=== PATIENT | male | born 1975 | race Caucasian/White ===

== ENCOUNTER 2021-03-25 10:51 | Inpatient (IN) ==
[2021-03-25] MEDS ORDERED: cefTRIAXone 1,000 MG in SODIUM CHLORIDE 0.9% 100 ML IV STA (12:02)
[2021-03-25] MEDS ORDERED: AZITHROMYCIN 40 MG/ML 15 ML/BOTTLE PO STA (12:02)
[2021-03-25] MEDS ORDERED: APIXABAN 5 MG TABLET PO SCH (12:30)
[2021-03-25] MEDS ORDERED: LACTULOSE 20 GM/30 ML UDCUP PO PRN (13:45)
[2021-03-25] MEDS ORDERED: DEXTROSE 50% 25 GM/50 ML VIAL IV PRN (13:45)
[2021-03-25] MEDS ORDERED: GLUCAGON 1 MG VIAL IM PRN (13:45)
[2021-03-25] MEDS ORDERED: ALBUTEROL 2.5 MG/3 ML NEB RESP TX PRN (13:45)
[2021-03-25] MEDS ORDERED: MORPHINE 2 MG/1 ML SYRINGE IV PRN (13:45)
[2021-03-25] MEDS ORDERED: hydrALAZINE 20 MG/1 ML VIAL IV PRN (13:45)
[2021-03-25] MEDS ORDERED: ACETAMINOPHEN 325 MG TABLET PO PRN (13:45)
[2021-03-25] MEDS ORDERED: HEPARIN 5,000 UNIT/1 ML VIAL IV ONE (13:52)
[2021-03-25] MEDS: ONDANSETRON 4 MG/2 ML VIAL IV PRN ×2 (14:23→20:04)
[2021-03-25] MEDS ORDERED: NICOTINE 21 MG/24 HR PATCH TRANSDERM PRN (14:32)
[2021-03-25 15:03] LABS: Risk Ratio 5.19; Thyroid Stimulating Hormone 0.218 uIU/ml (0.358-3.74); VLDL Cholesterol 21.2 MG/DL
[2021-03-25] MEDS: amLODIPine 10 MG TABLET PO SCH (16:57)
[2021-03-25] MEDS: oxyCODONE/ACETAMINOPHEN 5-325 MG TABLET PO PRN (16:57)
[2021-03-25] MEDS: DEXTROSE 5% NACL 0.45% 1,000 ML IV SCH ×2 (16:58→22:50)
[2021-03-25] MEDS: HYDROmorphone 2 MG/1 ML VIAL IV PRN (20:04)
[2021-03-26 05:57] LABS: Basophils % 0.4 % (0.0-0.8); Hematocrit 28.8 VOL% (42.0-52.0); Hemoglobin 9.5 GM/DL (14.0-18.0); Lymphocytes # 0.3 10*3/uL (1.4-4.0); Mean Platelet Volume 9.1 FL (9.6-12.0); Monocytes % 20.3 % (1.7-12.7); Neutrophils % 66.3 % (38.7-73.9); Platelet Count 262 T/CUMM (130-400); Red Blood Count 2.77 MC/CUMM (3.8-5.5); Red Cell Distribution Width 13.7 % (9.3-17.3); White Blood Count 2.3 T/CUMM (4-12)
[2021-03-26 06:16] LABS: Calcium 9.1 MG/DL (8.5-10.1); Osmolality,Calculated 273.8 MOS/KG (273-304); Potassium 4.2 MMOL/L (3.5-5.1)
[2021-03-26 06:24] LABS: Free T4 (Free Thyroxine) 1.11 NG/DL (0.76-1.46)
[2021-03-26 06:29] LABS: Band Neutrophils 1 % (0-10); Eosinophils 2 % (0-10); Hypochromasia 1+; Lymphocytes 13 % (20-55); Microcytosis 1+; Platelet Estimate Adequate; Segmented Neutrophils 70 % (50-85); Total Cells Counted 100
[2021-03-26] MEDS ORDERED: HEPARIN 5,000 UNIT/1 ML VIAL IV ONE (08:42)
[2021-03-26] MEDS ORDERED: ALPRAZolam 0.25 MG TABLET PO PRN (08:46)
[2021-03-26] MEDS ORDERED: guaiFENesin 200 MG/10 ML UDCUP PO PRN (08:46)
[2021-03-26] MEDS ORDERED: ALUMINUM/MAGNES/SIMETH MAX STR 30 ML UDCUP PO PRN (08:46)
[2021-03-26] MEDS ORDERED: ACETAMINOPHEN 325 MG TABLET PO PRN (08:46)
[2021-03-26] MEDS ORDERED: PROMETHAZINE INJ 25 MG in SODIUM CHLORIDE 0.9% 50 ML IV PRN (08:46)
[2021-03-26] MEDS ORDERED: MYLANTA/LIDO VISC 2:1 300 ML BOTTLE SWISH/SPIT PRN (08:46)
[2021-03-26] MEDS ORDERED: ONDANSETRON 4 MG/2 ML VIAL IV PRN (08:46)
[2021-03-26] MEDS ORDERED: LOPERAMIDE 2 MG CAPSULE PO PRN ×2 (08:46)
[2021-03-26] MEDS ORDERED: chlorproMAZINE INJ 50 MG in SODIUM CHLORIDE 0.9% 100 ML IV PRN (08:46)
[2021-03-26] MEDS ORDERED: MYLANTA/LIDO VISC 2:1 300 ML BOTTLE SWISH/SWAL PRN (08:46)
[2021-03-26] MEDS ORDERED: TEMAZEPAM 7.5 MG CAPSULE PO PRN (08:46)
[2021-03-26] MEDS ORDERED: chlorproMAZINE INJ 25 MG in SODIUM CHLORIDE 0.9% 100 ML IV PRN (08:46)
[2021-03-26] MEDS ORDERED: MAGNESIUM HYDROXIDE SUSP 30 ML UDCUP PO PRN (08:46)
[2021-03-26] MEDS ORDERED: traMADol 50 MG TABLET PO PRN (08:46)
[2021-03-26] MEDS ORDERED: diphenhydrAMINE CAP 25 MG CAPSULE PO PRN (08:46)
[2021-03-26] MEDS: DEXTROSE 5% NACL 0.45% 1,000 ML IV SCH ×3 (08:52→21:09)
[2021-03-26] MEDS: PANTOPRAZOLE 40 MG VIAL IV SCH (08:56)
[2021-03-26] MEDS: amLODIPine 10 MG TABLET PO SCH (08:56)
[2021-03-26] MEDS ORDERED: FILGRASTIM-SNDZ 480 MCG/0.8 ML SYRINGE SUBCUT SCH (09:00)
[2021-03-26] MEDS: LACTULOSE 20 GM/30 ML UDCUP PO PRN (09:09)
[2021-03-26] MEDS: HYDROmorphone 2 MG/1 ML VIAL IV PRN ×3 (09:09→18:19)
[2021-03-26] MEDS: HEPARIN DRIP 25,000 UNITS/500 ML PREMIX IV SCH (11:17)
[2021-03-26] MEDS: oxyCODONE/ACETAMINOPHEN 5-325 MG TABLET PO PRN (15:42)
[2021-03-26] MEDS: guaiFENesin/DM ER 600-30 MG TABLET PO SCH (21:10)
[2021-03-27] MEDS: HYDROmorphone 2 MG/1 ML VIAL IV PRN ×6 (00:40→23:29)
[2021-03-27 02:05] LABS: Basophils % 0.3 % (0.0-0.8); Eosinophils % 0.2 % (0.00-10.9); Hematocrit 28.1 VOL% (42.0-52.0); Hemoglobin 9.1 GM/DL (14.0-18.0); Immature Granulocytes % 2.2 %; Immature Granulocytes Absolute 0.14 #; Lymphocytes # 0.3 10*3/uL (1.4-4.0); Lymphocytes % 5.3 % (21.2-54.2); Mean Corpuscular HGB Conc 32.4 GM/DL (32-36); Mean Corpuscular Volume 103.3 FL (87-102); Mean Platelet Volume 9.3 FL (9.6-12.0); Monocytes % 10.2 % (1.7-12.7); Neutrophils % 81.8 % (38.7-73.9); Platelet Count 257 T/CUMM (130-400); Red Blood Count 2.72 MC/CUMM (3.8-5.5); Red Cell Distribution Width 14.2 % (9.3-17.3); White Blood Count 6.4 T/CUMM (4-12)
[2021-03-27 02:39] LABS: Band Neutrophils 1 % (0-10); Hypochromasia Slight; Lymphocytes 8 % (20-55); Platelet Estimate Normal; Segmented Neutrophils 79 % (50-85)
[2021-03-27 02:40] LABS: Total Cells Counted 100
[2021-03-27 03:42] LABS: Osmolality,Calculated 273.7 MOS/KG (273-304); Potassium 4.1 MMOL/L (3.5-5.1)
[2021-03-27] MEDS: HEPARIN DRIP 25,000 UNITS/500 ML PREMIX IV SCH ×2 (04:02→19:21)
[2021-03-27] MEDS: DEXTROSE 5% NACL 0.45% 1,000 ML IV SCH ×3 (05:40→23:30)
[2021-03-27] MEDS: guaiFENesin/DM ER 600-30 MG TABLET PO SCH ×2 (10:13→20:26)
[2021-03-27] MEDS: amLODIPine 10 MG TABLET PO SCH (10:14)
[2021-03-27] MEDS: cefTRIAXone 1,000 MG in SODIUM CHLORIDE 0.9% 100 ML IV SCH (10:14)
[2021-03-27] MEDS: PANTOPRAZOLE 40 MG VIAL IV SCH (10:14)
[2021-03-28 05:22] LABS: Basophils % 0.3 % (0.0-0.8); Eosinophils % 0.3 % (0.00-10.9); Hematocrit 25.9 VOL% (42.0-52.0); Hemoglobin 8.6 GM/DL (14.0-18.0); Immature Granulocytes % 1.5 %; Immature Granulocytes Absolute 0.12 #; Lymphocytes # 0.7 10*3/uL (1.4-4.0); Lymphocytes % 8.8 % (21.2-54.2); Mean Corpuscular HGB Conc 33.2 GM/DL (32-36); Mean Platelet Volume 9.2 FL (9.6-12.0); Monocytes % 8.9 % (1.7-12.7); Neutrophils % 80.2 % (38.7-73.9); Platelet Count 271 T/CUMM (130-400); Red Blood Count 2.54 MC/CUMM (3.8-5.5); White Blood Count 7.8 T/CUMM (4-12)
[2021-03-28 05:34] LABS: Calcium 8.6 MG/DL (8.5-10.1); Potassium 3.7 MMOL/L (3.5-5.1)
[2021-03-28 05:36] LABS: INR 1.3; PT Patient Result 14.1 SECS (10.5-12.0)
[2021-03-28 06:01] LABS: Anisocytosis 2+; Band Neutrophils 38 % (0-10); Lymphocytes 10 % (20-55); Metamyelocytes 1 %; Ovalocytes Few; Platelet Estimate Normal; Segmented Neutrophils 43 % (50-85); Total Cells Counted 100
[2021-03-28 06:02] LABS: Hypochromasia 1+; Macrocytosis 1+
[2021-03-28] MEDS ORDERED: MAGNESIUM SULF RIDER 2 GM/50 ML PREMIX IV PRN (06:12)
[2021-03-28] MEDS: MAGNESIUM SULF RIDER 4 GM/100 ML PREMIX IV PRN (07:19)
[2021-03-28] MEDS: PANTOPRAZOLE 40 MG VIAL IV SCH (09:37)
[2021-03-28] MEDS: cefTRIAXone 1,000 MG in SODIUM CHLORIDE 0.9% 100 ML IV SCH (09:37)
[2021-03-28] MEDS: HYDROmorphone 2 MG/1 ML VIAL IV PRN ×3 (09:46→20:58)
[2021-03-28] MEDS: guaiFENesin/DM ER 600-30 MG TABLET PO SCH ×2 (10:19→20:53)
[2021-03-28] MEDS: amLODIPine 10 MG TABLET PO SCH (10:19)
[2021-03-28] MEDS: LACTATED RINGERS 1,000 ML IV SCH (12:42)
[2021-03-28] MEDS ORDERED: propofoL 200 MG/20 ML VIAL IV ONE ×3 (13:57→14:11)
[2021-03-28] MEDS ORDERED: LIDOCAINE 2% 5 ML VIAL ONE (13:57)
[2021-03-28] MEDS ORDERED: ONDANSETRON 4 MG/2 ML VIAL ONE (14:21)
[2021-03-28] MEDS: LACTULOSE 20 GM/30 ML UDCUP PO PRN (16:37)
[2021-03-28] MEDS: DEXTROSE 5% NACL 0.45% 1,000 ML IV SCH ×2 (16:43→16:52)
[2021-03-29] MEDS: DEXTROSE 5% NACL 0.45% 1,000 ML IV SCH ×2 (00:27→13:49)
[2021-03-29 06:33] LABS: Basophils % 0.2 % (0.0-0.8); Eosinophils % 0.4 % (0.00-10.9); Hematocrit 27.5 VOL% (42.0-52.0); Hemoglobin 9.3 GM/DL (14.0-18.0); Immature Granulocytes % 0.4 %; Immature Granulocytes Absolute 0.02 #; Lymphocytes # 0.4 10*3/uL (1.4-4.0); Lymphocytes % 9.8 % (21.2-54.2); Mean Corpuscular HGB Conc 33.8 GM/DL (32-36); Mean Corpuscular Volume 102.2 FL (87-102); Mean Platelet Volume 9.1 FL (9.6-12.0); Monocytes % 10.7 % (1.7-12.7); Neutrophils % 78.5 % (38.7-73.9); Platelet Count 265 T/CUMM (130-400); Red Blood Count 2.69 MC/CUMM (3.8-5.5); White Blood Count 4.5 T/CUMM (4-12)
[2021-03-29 07:02] LABS: Eosinophils 3 % (0-10); Hypochromasia 1+; Lymphocytes 6 % (20-55); Microcytosis 1+; Platelet Estimate Adequate; Segmented Neutrophils 87 % (50-85); Total Cells Counted 100
[2021-03-29 07:24] LABS: Albumin 2.6 G/DL (3.4-5.0); Bilirubin,Total 0.4 MG/DL (0.20-1.00); Osmolality,Calculated 264.2 MOS/KG (273-304); Potassium 3.5 MMOL/L (3.5-5.1); Total Protein 6.9 G/DL (6.4-8.2)
[2021-03-29] MEDS: guaiFENesin/DM ER 600-30 MG TABLET PO SCH (08:37)
[2021-03-29] MEDS: amLODIPine 10 MG TABLET PO SCH (08:38)
[2021-03-29] MEDS: PANTOPRAZOLE 40 MG VIAL IV SCH (08:38)
[2021-03-29] MEDS: HYDROmorphone 2 MG/1 ML VIAL IV PRN ×2 (08:39→13:21)
[2021-03-29] MEDS: cefTRIAXone 1,000 MG in SODIUM CHLORIDE 0.9% 100 ML IV SCH (08:39)
[2021-03-29] MEDS: MAGNESIUM SULF RIDER 4 GM/100 ML PREMIX IV PRN (08:44)
[2021-03-29] MEDS ORDERED: APIXABAN 5 MG TABLET PO SCH (09:00)
[2021-03-29] MEDS ORDERED: APIXABAN 5 MG TABLET PER TUBE SCH (09:00)
[2021-03-29] MEDS ORDERED: POLYETHYLENE GLYCOL POWDER 17 GM PACK PEG SCH (09:00)
[2021-03-29 10:16] LABS: Folate 7.59 NG/ML (5.38-24.0)
[2021-03-29] MEDS: LACTATED RINGERS 1,000 ML IV SCH (10:57)
[2021-03-29 12:30] VITALS: BP 118/86
== END 2021-03-29 14:22 | disposition home or self-care (01) | DRG 176 ==
LOC: N.ED 10:51 → SUATTDRO 13:45 → N.EDINP 13:45 → N.2W 14:23
PROVIDERS: ADMIT Internal Medicine; ATTEND Emergency Medicine
PROC: EGDWPEG (ICD-10-PCS; 2021-03-28 11:35)